=== PATIENT | female | born 1965 | race Caucasian/White ===

== ENCOUNTER → 2017-11-06 16:57 | Outpatient (CLI) | payer BC, SELFPAY ==
[2017-11-06 18:27] LABS: Thyroid Stim Hormone (TSH) 1.74 uIU/mL (0.358-3.74)
[2017-11-09 13:02] LABS: HPV Reflexed? NOT INDICATED
== END ==
PROVIDERS: Visit Provider Obstetrics & Gynecology
DX: Z12.4 Encounter for screening for malignant neoplasm of cervix (principal); R63.5 Abnormal weight gain
CPT/HCPCS: 36415; 84443; 88175; G0145

== ENCOUNTER 2018-08-27 13:46 | Emergency (ER) | payer BC, SELFPAY ==
[2018-08-27 13:48] VITALS: BP 143/85; PULSE 86; RESP 16; TEMP 37.1; O2SAT 95; BMI 35.4
--- NOTE | 2018-08-27 13:59 | RAD_ITS ---
STUDY: X-RAY - RIGHT FOOT CLINICAL: Female, 53 years old. TECHNIQUE: 3 views view(s) of the foot. COMPARISON: None. FINDINGS: There is no evidence of osseous or articular abnormality. No soft tissue swelling identified. RAD/Foot min 3 Views IMPRESSION: Normal x-ray examination of the foot. Electronically Signed: Donald Black, at 14:45 EST Tel , Service support ,
--- NOTE | 2018-08-27 14:00 | RAD_ITS ---
STUDY: X-RAY - RIGHT ANKLE REASON FOR EXAM: Female, 53 years old. TECHNIQUE: 3 views view(s) of the ankle. COMPARISON: None. FINDINGS: There is no evidence of osseous or articular abnormality seen. The ankle mortise is unremarkable. There is minimal soft tissue swelling adjacent to the lateral malleolus. RAD/Ankle min 3 Views IMPRESSION: Negative study for fracture or dislocation Electronically Signed: Donald Black, at 14:46 EST Tel , Service support ,
--- NOTE | 2018-08-27 14:57 | ED.DCSUM_ITS ---
- ER Visit Summary Date of Service: 08/27/18 Chief Complaint: [Injury right ankle and foot] History of Present Illness: The patient is a 53 F [presents to the emergency department with an injury to her right foot and ankle that occurred last evening. Patient states that she missed a step and rolled her foot and ankle. Patient having a hard time bearing any weight. She did have some crutches at home. She denies any other injuries.] Physical Examination: [HEENT-PERRLA, EOMI. Cranial nerves II through XII grossly intact. TMs clear. Mucous membranes moist. No adenopathy. Cardiovascular-regular rate and rhythm without murmur or ectopy Lungs-clear to auscultation, chest wall stable without crepitus or subcu emphysema Abdomen-normoactive bowel sounds, soft, nontender, no rebound or rigidity, no peritoneal signs. Extremities-intact ?4, normal range of motion, normal pulses. Right ankle- patient has soft tissue swelling and ecchymosis diffusely about the ankle. Patient is tender over the tibiotalar joint. He has some diffuse tenderness over the proximal foot. Patient has soft tissue swelling and ecchymosis diffusely about the foot as well. She has no pain at the proximal fibular head. She is neurovascular intact.] Test Results: [X-rays of the right foot and ankle were obtained which were negative for fracture] Emergency Department Course and Treatment: [Patient was given an Aircast and 1 dose of [place]] Treatment Plan: [Patient advised ice and elevate elevate the extremity. 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 It may contain incorrect words, spelling, and punctuation that were not noted in review of the chart prior to signing ED Disposition - Plan for ED Patient: Chief Complaint: Lower Extremity Injury Referrals: Sofia Ortiz MD [Primary Care Provider] -
--- NOTE | 2018-08-27 14:58 | ED.DEP ---
ED Disposition - Plan for ED Patient: Chief Complaint: Lower Extremity Injury Instructions: ED Sprain Ankle W X Ray, ED Sprain Foot Prescriptions: Hydrocodone Bitart/Apap 5-325 [Imperial 5MG-325MG] 1 tab PO Q4H PRN PRN 2 Days #10 tab PRN Reason: Pain Referrals: Sofia Ortiz MD [Primary Care Provider] - Rudy Ott DO [STAFF PHYSICIAN] - 5-7 Days
[2018-08-27] MEDS: HYDROcodone Bitartrate/Apap 5/325 Tablet PO (15:10)
[2018-08-27 15:11] VITALS: RESP 18
== END 2018-08-27 15:11 | disposition home or self-care (01) ==
PROVIDERS: Emergency Provider Emergency Medicine; Family Provider Family Medicine; PCP Family Medicine
DX: S93.401A Sprain of unspecified ligament of right ankle, initial encounter (principal); S93.601A Unspecified sprain of right foot, initial encounter; W10.9XXA Fall (on) (from) unspecified stairs and steps, initial encounter; Y93.9 Activity, unspecified; Y92.9 Unspecified place or not applicable; Y99.9 Unspecified external cause status; Z72.0 Tobacco use; Z79.899 Other long term (current) drug therapy
CPT/HCPCS: 73610; 73630; 99283

== ENCOUNTER → 2019-02-06 15:51 | Outpatient (CLI) | payer BC, SELFPAY ==
--- NOTE | 2019-02-06 15:56 | RAD_ITS ---
STUDY: X-RAY CHEST REASON FOR EXAM: Female, 53 years old. Shortest breath, cough, chronic but worsening dyspnea. Long time smoking history. TECHNIQUE: PA and lateral views of the chest. COMPARISON: None. FINDINGS: There is borderline to mild hyperinflation of the lungs, suggesting obstructive lung disease. Small transverse linear density in the lingula of left upper lobe consistent with scar. No pneumonic infiltrate. There is no demonstrated pleural abnormality. Normal size heart. Normal mediastinum and humera. Normal visualized pulmonary arteries. Normal visualized aortic arch and descending thoracic aorta. There are minor multilevel degenerative changes of the mid thoracic spine. There is borderline to mild left lateral wedging of the T8 vertebra. The absence of apparent paraspinal swelling at that level suggests this is old. Normal visualized ribs, clavicles, and shoulders. There is no demonstrated abnormality of the visualized soft tissue structures of the upper abdomen. RAD/Chest PA and Lateral IMPRESSION: Borderline to mild hyperinflation, suggesting obstructive pulmonary disease. Focal linear scar in the lingula of left upper lobe. Electronically Signed: Star Oro MD at 13:21 EDT , Service support ,
== END ==
PROVIDERS: Family Provider Family Medicine; PCP Family Medicine; Referring Provider Family Medicine; Visit Provider Family Medicine
DX: J44.1 Chronic obstructive pulmonary disease with (acute) exacerbation (principal)
CPT/HCPCS: 71046

== ENCOUNTER → 2019-04-11 15:49 | Outpatient (CLI) | payer BC, SELFPAY ==
--- NOTE | 2019-04-11 15:53 | BI_ITS ---
MAMMOGRAPHY - BILATERAL SCREENING REASON FOR EXAM: Female, 54 years old. Routine annual screening examination. PERTINENT HISTORY: Non-contributory. TECHNIQUE: Digital bilateral breast tonya (3D mammographic acquisition) in the CC and MLO projections. 2-D mediolateral oblique (MLO) and craniocaudad (CC) views of both breasts were obtained. CAD: Full Field Digital Mammography with Computer Added Detection was performed. COMPARISON: Comparison is made with prior examination dated August 26, 2015. FINDINGS: Breast Composition: The breasts are heterogeneously dense, which may obscure small masses. There are no dominant masses or suspicious calcifications. No other significant abnormalities are identified. There has been no significant change since the prior study. BI/SCREEN MAMM (CAD) W/TONYA BILAT IMPRESSION: Stable bilateral screening mammogram. Yearly follow-up mammogram recommended. (A) ASSESSMENT CATEGORY: BIRADS Category 1: Negative. A letter regarding these results will be sent to the patient by the facility within 30 days. Approximately 10% of breast cancers are not detected by mammography. A normal mammogram should not delay biopsy of a clinically suspicious abnormality. [id number] Electronically Signed: Jc Guadarrama, at 9:10 EDT , Service support ,
== END ==
PROVIDERS: Family Provider Family Medicine; PCP Family Medicine; Referring Provider Family Medicine; Visit Provider Family Medicine
DX: Z12.31 Encounter for screening mammogram for malignant neoplasm of breast (principal)
CPT/HCPCS: 77063; 77067

== ENCOUNTER → 2019-07-15 13:12 | Outpatient (CLI) | payer BC, SELFPAY ==
--- NOTE | 2019-07-15 15:11 | PFTCOMP ---
COMPLETE PULMONARY FUNCTION TEST INTERPRETATION Brief HPI: Patient is a 54 year old female, currently under the care of Dr. Ortiz, who presents to [facility] for complete pulmonary function tests secondary to diagnosis of asthma versus COPD. Respiratory therapist reports good effort and reproducible results. Interpretation: Forced expiration spirometry shows a mild large airways obstructive ventilatory defect with an FEV1 of 77% predicted. There is a significant bronchodilator response in FVC and FEV1 by strict ATS criteria. Spirograms are of good quality and plateau slowly, indicating slowly emptying areas of the lungs. The respiratory flow volume loop shows decreased expiratory flow rates at all lung volumes consistent with airway obstruction. Lung volumes by body plethysmography show an elevated total lung capacity at 5.62 L, 118% predicted. FRC and RV are elevated out of proportion. Lung volume measurements are consistent with hyperinflation and air-trapping. Diffusion capacity by carbon monoxide is at the lower limit of normal at 76% predicted. The airway resistance is elevated. No previous pulmonary function tests were available for review. Impression: Partially reversible mild large airways obstructive ventilatory defect resulting in air trapping with hyperinflation, and a pattern consistent with COPD/asthma overlap syndrome.
== END ==
PROVIDERS: Family Provider Family Medicine; PCP Family Medicine; Referring Provider Family Medicine; Visit Provider Family Medicine
DX: J45.909 Unspecified asthma, uncomplicated (principal)
CPT/HCPCS: 94060; 94726; 94729

== ENCOUNTER → 2019-08-14 12:54 | Outpatient (CLI) | payer BC, SELFPAY ==
[2019-08-14 12:44] VITALS: BMI 34.5
--- NOTE | 2019-08-14 13:00 | RAD_ITS ---
STUDY: X-RAY - RIGHT KNEE REASON FOR EXAM: Chronic pain, no specific injury. TECHNIQUE: 4 view(s) of the knee. COMPARISON: None. FINDINGS: Normal visualized distal femur. Normal visualized proximal tibia and fibula. Normal proximal tibiofibular articulation. There is moderate to severe joint space narrowing of the medial femorotibial compartment. Normal lateral femorotibial compartment. There are minimal marginal osteophytes without joint space narrowing of the patellofemoral articulation. The soft tissue structures are unremarkable. RAD/Knee 4 or More Views IMPRESSION: Arthrosis of the medial femorotibial compartment. Electronically Signed: Andrew Hook MD at 14:30 EST Tel , Service support ,
== END ==
PROVIDERS: Family Provider Family Medicine; PCP Family Medicine; Referring Provider Orthopaedic Surgery; Visit Provider Orthopaedic Surgery
DX: M17.11 Unilateral primary osteoarthritis, right knee (principal)
CPT/HCPCS: 73564

== ENCOUNTER → 2020-03-29 14:10 | Outpatient (CLI) | payer BC, SELFPAY ==
[2019-08-14 12:44] VITALS: BMI 34.5
[2020-03-29 16:58] LABS: Absolute Lymphocyte Count 1.67 X10^3/uL (0.83-4.51); Absolute Neutrophil Count 3.4 X10^3/uL (2.0-7.7); Basophil# 0.01 X10^3/uL; Basophil% 0.2 % (0-1); Eosinophil# 0.05 X10^3/uL; Eosinophils% 0.9 % (0-5); Hematocrit 42.7 % (37-47); Hemoglobin 14.1 g/dL (12.0-15.0); Lymphocyte # 1.67 X10^3/ul (4.0); Lymphocyte % 29.5 % (19-41); Mean Corpuscular Hgb 32.3 pg (27.0-32.0); Mean Corpuscular Volume 97.9 fL (81-99); Mean Platelet Vol. 8.8 fl (6.2-12.0); Monocyte# 0.49 X10^3/uL; Monocyte% 8.7 % (0-10); NRBC Flagged by Analyzer 0 % (0-5); Neutrophil # 3.42 X10^3/uL (2.7-7.7); Neutrophil % 60.3 % (47-70); Platelet Count 236 K/mm3 (150-450); RBC Distribution Width CV 11.9 % (11.6-14.6); RBC Distribution Width SD 43.8 fl (35.1-43.9); Red Blood Count 4.36 M/mm3 (4.2-5.4); White Blood Count 5.7 K/mm3 (4.4-11.0)
[2020-03-29 17:16] LABS: ALB/GLOB Ratio 1.1 RATIO (0.9-2.4); AST(SGOT) 21 U/L (15-37); Alanine Aminotransfer ALT/SGPT 25 U/L (13-56); Albumin, Serum 3.9 g/dL (3.2-5.0); Alkaline Phosphatase 68 U/L (45-117); Anion Gap 3 (5-15); BUN 11 mg/dL (7-18); Calcium,Total 9.1 mg/dL (8.5-10.1); Chloride 104 mmol/L (98-107); Creatinine, Serum 0.84 mg/dL (0.55-1.02); EST Glomerular Filtration Rate 75 mL/min (>60); Est Glom Filt Rate - Afr Amer 90 mL/min (>60); Globulin 3.4 g/dL (2.2-4.2); Glucose 88 mg/dL (74-106); Lipase 60 U/L (73-393); Potassium 3.7 mmol/L (3.5-5.1); Protein, Total 7.3 g/dL (6.4-8.2); Sodium Level 137 mmol/L (136-145)
[2020-03-31 13:16] LABS: H.Pylori Breath Test Positive (Negative)
== END ==
PROVIDERS: PCP Family Medicine; Visit Provider Family Medicine
DX: R10.13 Epigastric pain (principal)
CPT/HCPCS: 36415; 80053; 83013; 83690; 85025

== ENCOUNTER → 2020-05-24 15:51 | Outpatient (CLI) | payer BC, SELFPAY ==
[2019-08-14 12:44] VITALS: BMI 34.5
[2020-05-26 15:19] LABS: H.Pylori Breath Test Negative (Negative)
== END ==
PROVIDERS: PCP Family Medicine; Visit Provider Family Medicine
DX: A04.8 Other specified bacterial intestinal infections (principal)
CPT/HCPCS: 83013

== ENCOUNTER → 2020-12-24 08:49 | Outpatient (CLI) | payer OTHER, SELFPAY ==
[2019-08-14 12:44] VITALS: BMI 34.5
--- NOTE | 2020-12-24 08:53 | RAD_ITS ---
STUDY: X-RAY - ESOPHAGUS (BARIUM SWALLOW) WITH FLUOROSCOPY REASON FOR EXAM: Female, 55 years old. DYSPHAGIA TECHNIQUE: 15 view(s) of the esophagus were obtained following swallowing of barium. FLUOROSCOPY TIME (if supplied): (23 seconds) minutes/seconds COMPARISON: None. FINDINGS: There is no demonstrated esophageal foreign body. There is no demonstrated stricture or mucosal abnormality. Normal gastroesophageal junction, without a demonstrated hiatal hernia. The patient ingested a 12 mm tablet of barium without any difficulty. Normal visualized aortic arch and descending thoracic aorta. Normal visualized pulmonary parenchyma. Normal visualized osseous structures of the thorax. RAD/Esophagus Dual Contrast IMPRESSION: Normal plain film x-ray examination (barium swallow) of the esophagus. Electronically Signed: Jc Guadarrama MD at 12:35 EDT , Service support ,
== END ==
PROVIDERS: PCP Family Medicine; Referring Provider Otolaryngology; Visit Provider Otolaryngology
DX: R13.10 Dysphagia, unspecified (principal)
CPT/HCPCS: 74221

== ENCOUNTER 2020-12-27 11:46 | Emergency (ER) | payer OTHER, SELFPAY ==
[2019-08-14 12:44] VITALS: BMI 34.5
[2020-12-27 11:47] VITALS: BP 177/92; PULSE 103; RESP 18; TEMP 35.9; O2SAT 97; BMI 36.9
--- NOTE | 2020-12-27 13:08 | EKG12_ITS ---
Test Reason : REPEAT-CP Blood Pressure : / mmHG Vent. Rate : 076 BPM Atrial Rate : 076 BPM P-R Int : 148 ms QRS Dur : 090 ms QT Int : 400 ms P-R-T Axes : 057 082 043 degrees QTc Int : 450 ms Normal sinus rhythm Normal ECG Confirmed by CRISTI LAU, LARA ([id number]), acquisitions editor GABRIEL POSADAS ([id number]) on 12/30/2020 8:56:21 AM Referred By: MEGHNA Confirmed By:LARA COLIN MD
--- NOTE | 2020-12-27 13:15 | RAD_ITS ---
STUDY: X-RAY CHEST REASON FOR EXAM: Female, 55 years old. Chest pain TECHNIQUE: Single AP portable view of the chest. COMPARISON: Comparison is made with prior examination dated 02/06/2019. FINDINGS: EKG electrodes are seen. Hyperinflation. Stable minimal increased linear markings in the left mid lung suggestive of a scarring. There is no demonstrated pleural abnormality. Normal size heart. Normal mediastinum and humera. Normal visualized pulmonary arteries. Normal visualized aortic arch and descending thoracic aorta. Normal visualized thoracic spine. Normal visualized ribs, clavicles, and shoulders. There is no demonstrated abnormality of the visualized soft tissue structures of the upper abdomen. RAD/Chest 1 View (Portable) IMPRESSION: Hyperinflation. Stable examination. Electronically Signed: Jc Guadarrama MD at 13:45 EDT , Service support ,
[2020-12-27 13:18] LABS: Absolute Neutrophil Count 3.4 X10^3/uL (2.0-7.7); Basophil# 0.03 X10^3/uL; Basophil% 0.4 % (0-1); Eosinophil# 0.07 X10^3/uL; Hematocrit 43.5 % (37-47); Hemoglobin 14.6 g/dL (12.0-15.0); Lymphocyte % 39.9 % (19-41); Mean Corp Hgb Conc 33.6 g/dL (32-36); Mean Corpuscular Hgb 33.3 pg (27.0-32.0); Mean Corpuscular Volume 99.1 fL (81-99); Mean Platelet Vol. 8.1 fl (6.2-12.0); Monocyte# 0.52 X10^3/uL; Monocyte% 7.7 % (0-10); NRBC Flagged by Analyzer 0 % (0-5); Neutrophil # 3.43 X10^3/uL (2.7-7.7); Neutrophil % 50.7 % (47-70); Platelet Count 218 K/mm3 (150-450); RBC Distribution Width CV 12.6 % (11.6-14.6); RBC Distribution Width SD 46.6 fl (35.1-43.9); Red Blood Count 4.39 M/mm3 (4.2-5.4); White Blood Count 6.8 K/mm3 (4.4-11.0)
[2020-12-27 13:29] LABS: D-Dimer Quantitative (DVT/PE) 0.32 FEU/ug/m (0.27-0.49)
[2020-12-27 13:33] VITALS: BP 149/79; PULSE 89; RESP 25; O2SAT 96
[2020-12-27 13:33] LABS: Anion Gap 5 (5-15); BUN 14 mg/dL (7-18); BUN/Creat Ratio 15.9 RATIO (10-20); Calcium,Total 9.5 mg/dL (8.5-10.1); Chloride 101 mmol/L (98-107); Creatinine, Serum 0.88 mg/dL (0.55-1.02); EST Glomerular Filtration Rate 71 mL/min (>60); Est Glom Filt Rate - Afr Amer 86 mL/min (>60); Estimated Creatinine Clearance 63.11 ml/min; Glucose 104 mg/dL (74-106); Potassium 3.9 mmol/L (3.5-5.1); Sodium Level 138 mmol/L (136-145)
[2020-12-27 13:37] VITALS: O2SAT 96
[2020-12-27] MEDS: Aspirin 81 MG TAB.CHEW 324 MG PO (13:40)
--- NOTE | 2020-12-27 13:55 | ED.DCSUM_ITS ---
History of Present Illness Chief Complaint: Chest Pain Informant: Patient Narrative: 55-year-old female presenting with chest pain. She states it is sharp and left parasternal. Its been constant since about 10-10 30 this morning. She has a little bit of shortness of breath but she always does with her asthma. She notes no significant change. Patient had no diaphoresis, nausea, lightheadedness. She is concerned because her brother had a stent at 45. She has not had any cardiac history and never had a stress test. She states her mother also of a heart attack at 59. She denies fever, chills. She does have acid reflux. He also takes medications for anxiety depression. She does not have diabetes, hypertension, hyperlipidemia. Past Medical History - Allergies and Home Meds Allergies/Adverse Reactions: Allergies No Known Allergies Allergy (Verified 12/27/20 11:47) Primary Care Physician: Sofia Ortiz MD [Primary Care Provider] - Past Medical History: - - Anxiety/depression, GERD Lives: Spouse/ Significant Other Smoking Status: Current every day smoker Alcohol: None Drugs: None Review of Systems General: Denies: Chills, Fever, Sweats Eyes: Denies: Visual changes - bilaterally, Diplopia ENT: Denies: Rhinorrhea, Sore throat Cardiovascular: Reports: Chest pain. Denies: Palpitations, Heart racing Respiratory: Reports: Dyspnea. Denies: Cough, Sputum, Dyspnea on exertion Gastrointestinal: Denies: Abdominal pain, Nausea, Vomiting, Diarrhea, Melena, Hematochezia Genitourinary: Denies: Dysuria, Hematuria, Frequency Musculoskeletal: Denies: Back pain, Extremity Pain Skin: Denies: Rash, Wounds Neurological: Denies: Headache, Weakness, Numbness Psych: Denies: Depression, Anxiety, Suicidal thoughts, Suicidal ideations, -, - Physical Exam Vital Signs/Narrative: Vital Signs Temp Pulse Resp BP Pulse Ox 12/27/20 13:37 96 12/27/20 13:33 89 25 H 149/79 H 96 12/27/20 11:47 96.6 F L 103 H 18 177/92 H 97 General: Obese, No Acute Distress Head: Normocephalic, Atraumatic Eyes: Perrl, EOMI, Pale conjunctiva ENT: Moist mucous membranes, No rhinorrhea Cardiovascular: Regular rate, Regular rhythm Respiratory: No distress, CTA bilaterally Abdomen: Soft, Nontender, Nondistended Back: Nontender, Normal Inspection Extremities: Nontender, No edema Skin: Normal color, No rash. Negative for: Cyanosis, Diaphoresis Neurological: Alert, Oriented x3, Cranial nerves II-XII grossly intact Psychological: Normal affect, Normal Mood Diagnostic/Tx/Re-eval - Medical Decision Making 55-year-old female presenting with chest pain which started about 10-10 30 this morning. She describes it as sharp and parasternal. She does have some shortness of breath however she states she is always short of breath with asthma. EKG performed on arrival shows a sinus rhythm at 100 bpm without signs of ischemic change as interpreted by myself. Chest x-ray interpreted by myself shows no acute cardiopulmonary process. CBC, BMP, troponin unremarkable. D- dimer is negative. Patient's heart score is a 3 based on strong family history, age, smoking, and obesity. Patient will have delta troponin and EKG. EKG is sinus rhythm at 76 bpm without signs of ischemic change as interpreted by myself. Delta troponin is negative. Patient will be discharged home. Counseled to follow-up with her PCP for more outpatient follow-up. Patient st able at this time. Impression: 1. Chest pain ED Disposition - Plan for ED Patient: Disposition: Home or Assisted Living Instructions: ED Chest Pain, Uncertain Cause Referrals: Sofia Ortiz MD [Primary Care Provider] -
[2020-12-27 15:15] VITALS: BP 162/68; PULSE 80; RESP 19; O2SAT 94
--- NOTE | 2020-12-27 16:00 | EKG12_ITS ---
Test Reason : CP Blood Pressure : / mmHG Vent. Rate : 100 BPM Atrial Rate : 100 BPM P-R Int : 136 ms QRS Dur : 088 ms QT Int : 350 ms P-R-T Axes : 079 086 046 degrees QTc Int : 451 ms Normal sinus rhythm Normal ECG Confirmed by CRISTI LAU, LARA ([id number]), photographic editor GABRIEL POSADAS ([id number]) on 12/30/2020 8:56:37 AM Referred By: DAMIEN/MEGHNA Confirmed By:LARA COLIN MD
[2020-12-27 17:25] VITALS: BP 158/93; PULSE 76; RESP 15; O2SAT 94
[2020-12-27 17:57] VITALS: BP 155/87; PULSE 73; RESP 17; O2SAT 98
== END 2020-12-27 17:58 | disposition home or self-care (01) ==
PROVIDERS: Emergency Provider Student in an Organized Health Care Education/Training Program; PCP Family Medicine
DX: R07.9 Chest pain, unspecified (principal); J45.909 Unspecified asthma, uncomplicated; K21.9 Gastro-esophageal reflux disease without esophagitis; F32.9 Major depressive disorder, single episode, unspecified; F41.9 Anxiety disorder, unspecified; F17.200 Nicotine dependence, unspecified, uncomplicated; Z79.899 Other long term (current) drug therapy; Z82.49 Family history of ischemic heart disease and other diseases of the circulatory system
CPT/HCPCS: 71045; 80048; 84484; 85025; 85379; 93005; 99284; A4216

== ENCOUNTER → 2021-02-09 12:21 | Outpatient (CLI) | payer OTHER, SELFPAY ==
[2019-08-14 12:44] VITALS: BMI 34.5
--- NOTE | 2021-02-09 14:34 | NEURO ---
NCS and/or EMG Patient Report Ordering Doctor: Sofia Ortiz DATE OF SERVICE: 02/09/21 Beatriz presents for electrodiagnostic testing of the lower limbs. She reports numbness and tingling in both legs with shooting pains bilaterally. Electrodiagnostic findings: Peroneal motor nerve demonstrates normal distal latency, amplitude and conduction velocity bilaterally. Normal tibial motor response bilaterally. Normal peroneal and tibial F waves. H reflex is are borderline prolonged. Sensory responses are within normal limits. On needle EMG, all muscles tested in the lower limbs show no evidence of denervation with normal motor unit action potentials. Electrodiagnostic assessment: This is a normal electrodiagnostic study in the lower limbs. There is no electrodiagnostic evidence for peripheral neuropathy or lumbosacral radiculopathy.
== END ==
PROVIDERS: PCP Family Medicine; Referring Provider Family Medicine; Visit Provider Family Medicine
DX: G62.9 Polyneuropathy, unspecified (principal)
CPT/HCPCS: 95886; 95912

== ENCOUNTER 2021-09-12 17:29 | Emergency (ER) | payer BC, SELFPAY ==
[2021-09-12 17:29] VITALS: BP 167/129; PULSE 108; RESP 18; TEMP 36; O2SAT 96; BMI 38.2
[2021-09-12 18:57] VITALS: BP 163/99
--- NOTE | 2021-09-12 19:30 | EX.ED.DYSGE1 ---
HPI History of Present Illness Chief Complaint: Hypertension Informant: patient Onset/Context/Timing Onset: Today Timing: Intermittent Narrative Narrative: 56-year-old female history of depression and anxiety. Has had URI symptoms for about a week. Today was tested at the [facility] and tested positive for COVID-19. States has had a cough URI symptoms. Denies vomiting or trouble breathing. She is never been told she had hypertension has never been treated for it. Prior similar symptoms: No Recent Illness/Hospitalization: No PFSH PFSH Home Medications bupropion HCl 300 mg 24 hr tablet, extended release 450 mg PO DAILY 30 Days #30 01/10/18 [History Last Taken Unknown] paroxetine HCl 40 mg tablet 40 mg PO DAILY 30 Days #30 01/10/18 [History Last Taken Unknown] fluticasone propionate 110 mcg/actuation HFA aerosol inhaler 1 puff INHALATION DAILY #12 g 08/14/19 [History Last Taken Unknown] Allergy/AdvReac Type Severity Reaction Status Date / Time No Known Allergies Allergy Verified 09/12/21 17:31 Social History Smoking Status: Current every day smoker tobacco type: cigarettes alcohol intake: never ROS ROS ED ROS Narrative Cough and URI symptoms. Review of Systems ROS Unobtainable: Denies due to encephalopathy Constitutional Constitutional ED: Denies daytime sleepiness Eyes Eyes: Denies blindness or change in vision ENT ENT ED: Denies bleeding gums or dizziness Cardiovascular Cardiovascular: Denies abdominal pain Respiratory/Chest Respiratory/Chest: Denies change in mental status Gastrointestinal Gastrointestinal: Denies constipation Genitourinary Genitourinary ED: Denies anuria or burning urination Integumentary Denies alopecia Neurologic Neurologic: Denies abnormal movements or abnormal speech Psychiatric Psychiatric: Denies cognitive impairment or confusion Endocrine Endocrinology: Denies cold intolerance Hematologic/Lymphatic Hematologic/Lymphatic: Denies anemia Allergic/Immunologic Allergic/Immunologic ED: Denies itchy eyes, lip swelling or mouth swelling EXAM Physical Exam Narrative Exam Narrative: Patient no acute distress vital signs stable afebrile. Her blood pressure on room was 160/90. Pulse ox 96% on room air no signs hypoxia. She is in no distress. HEENT exam unremarkable. Neck nontender. Lungs clear to auscultation bilaterally. Heart regular rhythm no murmur. Abdomen soft nontender. Moving all 4 extremities. Calves nontender without edema or cords. Neurologic exam normal. Const Vital Signs: 09/12/21 17:29 09/12/21 18:56 09/12/21 18:57 Temperature 96.8 F L Temperature Source Temporal Pulse Rate 108 H Respiratory Rate 18 Respiratory Effort Normal Non-Labored Respiratory Pattern Normal Blood Pressure 167/129 H 163/99 H Blood Pressure Mean 141 120 Pulse Ox 96 Oxygen Delivery Method Room Air Positive well nourished, well developed, obese, alert, oriented x3, no apparent distress, average body habitus, no limitations and healthy appearing; Negative for cachectic, contractures or unkempt General Appearance ED: active, cooperative and well developed; Negative for unkempt, cachectic or contractures Nutritional Appearance: obese; Negative for cachectic HEENT Reports normocephalic, head/scalp atraumatic and moist oral mucous membranes Eyes PERRL, EOMs intact bilaterally, conjunctivae normal and no scleral icterus Neck full ROM, No nuchal rigidity, no lymphadenopathy, supple, no meningeal signs and no JVD Lymph Lymphatic: no lymphadenopathy noted and no lymphedema noted; Negative for lymphedema or lymphadenopathy Chest Wall inspection of chest normal and palpation of chest normal Resp normal respiratory effort, normal air movement, no retractions, no use of accessory muscles, clear to auscultation bilaterally and percussion normal GI normal to inspection, nondistended, normoactive bowel sounds, soft to palpation, non-tender, non-distended, no masses and no bruits Back/Spine no CVA tenderness, normal ROM and normal to inspection Extremity normal to inspection, full ROM, normal capillary refill, no clubbing, cyanosis or edema, no calf tenderness and no pedal edema Neuro oriented x3, moves all extremities, no focal motor deficits and no sensory deficits noted Psych mental status grossly normal, thought process normal, cooperative, affect normal, speech normal and activity/motor behavior normal Appearance: Negative for unkempt Skin no rashes or lesions noted, no wounds, no jaundice, no petechiae and no mottling Rashes: no rashes MDM MDM MDM Narrative Medical decision making narrative: Middle-aged female COVID-positive today. Has a history of depression anxiety. She is never treated for hypertension her pressures been elevated today. She discussed she did not want start on blood pressure medications she will log her pressures twice a day follow-up with her primary care physician and they will decide at that time if she needs to be on blood pressure medication. She also be referred for monoclonal antibody therapy due to her being COVID-positive from the outpatient lab today. Discharge Plan Triage Chief Complaint: Hypertension ED Provider: Maurizio Keith Dx/Rx/DC Orders Clinical Impression: COVID-19, Elevated blood pressure reading Instructions: ED Hypertension, To Be Confirmed, Human Coronaviruses Prescriptions: No Action paroxetine HCl 40 mg tablet 40 mg PO DAILY 30 Days Qty: 30 RF: 0 bupropion HCl 300 mg tablet extended release 24 hr 450 mg PO DAILY 30 Days Qty: 30 RF: 0 fluticasone propionate 110 mcg/actuation HFA aerosol inhaler 1 puff INHALATION DAILY Qty: 12 RF: 0 Other Ambulatory Orders: COVID Outpatient Monoclonal Antibody Referral (Routine) Timeframe: 1 Day Facility: [facility] - Location: [facility] Ordered By: Dr. Maurizio Keith Primary Care Provider: Sofia Ortiz Referrals: Sofia Ortiz MD [Primary Care Provider] - 3-5 Days Activity Restrictions/Additional Instructions: For your COVID plenty of fluids and rest. Tylenol or Motrin for fever. And body aches. Hospital call you and then can decide if you want to be a candidate for the monoclonal antibodies. Return if you are feeling worse. If positive I will get a blood pressure machine or heart or someone's and log your blood pressure twice daily. Showed those readings to your doctor when you follow-up with her. That will help her determine if she needs start you on blood pressure medication. Disposition Disposition: Home, Self Care
[2021-09-12 19:40] VITALS: BP 160/90
[2021-09-12 20:08] VITALS: BP 159/74; PULSE 89; RESP 15; O2SAT 99
== END 2021-09-12 20:08 | disposition home or self-care (01) ==
PROVIDERS: Emergency Provider Emergency Medicine; PCP Family Medicine; Visit Provider Emergency Medicine
DX: U07.1 COVID-19 (principal); R03.0 Elevated blood-pressure reading, without diagnosis of hypertension; F32.A Depression, unspecified; F41.9 Anxiety disorder, unspecified; E66.9 Obesity, unspecified; Z68.38 Body mass index [BMI] 38.0-38.9, adult; Z79.899 Other long term (current) drug therapy
CPT/HCPCS: 99282

== ENCOUNTER → 2022-04-07 | Outpatient (CLI) | payer BC, SELFPAY ==
--- NOTE | 2022-04-07 13:51 | STRESSREP ---
Stress Test Report Date: 04-07-2022 Procedure: Exercise tolerance test Indications: Chest pain; status post COVID-19 Consent: Per the patient Procedure: The patient exercised on a Catalino protocol for 6 minutes completing stage II achieving a peak heart rate of 151 bpm (91% predicted maximal heart rate) with a peak blood pressure 210/70 mmHg and a peak MET capacity of approximately 7 MET's. The baseline ECG demonstrated normal sinus rhythm. The peak exercise ECG demonstrated somatic/motion artifact with no obvious ECG changes. There were no cardiac dysrhythmias pretest, during exercise, or recovery. The functional capacity was considered average. The patient had no complaint of chest discomfort during exercise or recovery. The examination was discontinued secondary to dyspnea. Impression: 1. Technically adequate (percent predicted maximal heart rate greater than 85%) exercise tolerance test 2. Peak exercise ECG with with somatic/motion artifact with no obvious ECG changes 3. There were no cardiac dysrhythmias during exercise or recovery This note was generated with [employer] software. It may contain incorrect words, spelling, and punctuation that were not noted in checking the note before signing.
== END | disposition home or self-care (01) ==
LOC: CVS 12:16
PROVIDERS: PCP Family Medicine; Referring Provider Family Medicine; Visit Provider Family Medicine
DX: R07.9 Chest pain, unspecified (principal); R06.00 Dyspnea, unspecified
CPT/HCPCS: 93017

== ENCOUNTER → 2022-11-03 | Outpatient (CLI) | payer BC, SELFPAY ==
[2022-11-03 17:41] LABS: ALB/GLOB Ratio 1.3 RATIO (0.9-2.4); AST(SGOT) 21 U/L (15-37); Alanine Aminotransfer ALT/SGPT 21 U/L (13-56); Alkaline Phosphatase 76 U/L (45-117); Anion Gap 7 (5-15); BUN 20 mg/dL (7-18); BUN/Creat Ratio 21.5 RATIO (10-20); Calcium,Total 9.7 mg/dL (8.5-10.1); Chloride 97 mmol/L (98-107); Cholesterol 236 mg/dL (200); Creatinine, Serum 0.93 mg/dL (0.55-1.02); EST Glomerular Filtration Rate 66 mL/min (>60); Est Glom Filt Rate - Afr Amer 80 mL/min (>60); Globulin 3.1 g/dL (2.2-4.2); Glucose 107 mg/dL (74-106); High Density Lipoprotein 93 mg/dL; Potassium 4.3 mmol/L (3.5-5.1); Protein, Total 7.1 g/dL (6.4-8.2); Sodium Level 136 mmol/L (136-145); Triglycerides 44 mg/dL; Very Low Density Lipoprotein 9 mg/dL (5-40)
[2022-11-03 17:42] LABS: Absolute Neutrophil Count 2.3 X10^3/uL (2.0-7.7); Basophil# 0.02 X10^3/uL; Basophil% 0.4 % (0-1); Eosinophil# 0.06 X10^3/uL; Eosinophils% 1.1 % (0-5); Hematocrit 41.3 % (37-47); Hemoglobin 13.9 g/dL (12.0-15.0); Lymphocyte % 48.8 % (19-41); Mean Corp Hgb Conc 33.7 g/dL (32-36); Mean Corpuscular Hgb 32.5 pg (27.0-32.0); Mean Corpuscular Volume 96.5 fL (81-99); Mean Platelet Vol. 8.6 fl (6.2-12.0); Monocyte# 0.43 X10^3/uL; Monocyte% 7.8 % (0-10); NRBC Flagged by Analyzer 0 % (0-5); Neutrophil # 2.32 X10^3/uL (2.7-7.7); Neutrophil % 41.9 % (47-70); Platelet Count 236 K/mm3 (150-450); RBC Distribution Width SD 43.1 fl (35.1-43.9); Red Blood Count 4.28 M/mm3 (4.2-5.4); White Blood Count 5.5 K/mm3 (4.4-11.0)
[2022-11-03 18:06] LABS: Vitamin D,25 Hydroxy 15.4 ng/mL
== END | disposition home or self-care (01) ==
LOC: BFHLAB 15:56
PROVIDERS: PCP Family Medicine; Visit Provider Family Medicine
DX: R06.00 Dyspnea, unspecified (principal); J44.9 Chronic obstructive pulmonary disease, unspecified; K21.9 Gastro-esophageal reflux disease without esophagitis
CPT/HCPCS: 36415; 80053; 80061; 82306; 85025

== ENCOUNTER → 2023-01-09 | Outpatient (CLI) | payer BC, SELFPAY ==
--- NOTE | 2023-01-09 16:06 | BI_ITS ---
MAMMOGRAPHY - BILATERAL SCREENING REASON FOR EXAM: Female, 57 years old. Routine annual screening examination. PERTINENT HISTORY: Non-contributory. TECHNIQUE: Digital bilateral breast tonya (3D mammographic acquisition) in the CC and MLO projections. 2-D mediolateral oblique (MLO) and craniocaudad (CC) views of both breasts were obtained. CAD: Full Field Digital Mammography with Computer Added Detection was performed. COMPARISON: Comparison is made with prior study dated April 11, 2019 and August 26, 2015. FINDINGS: Breast Composition: The breasts are heterogeneously dense, which may obscure small masses. There are no dominant masses or suspicious calcifications. No other significant abnormalities are identified. There has been no significant change since the prior study. BI/SCRN MAMM (CAD)W/TONYA BILAT IMPRESSION: Stable bilateral screening mammogram. Yearly follow-up mammogram recommended. (A) ASSESSMENT CATEGORY: BIRADS Category 1: Negative. A letter regarding these results will be sent to the patient by the facility within 30 days. Approximately 10% of breast cancers are not detected by mammography. A normal mammogram should not delay biopsy of a clinically suspicious abnormality. [id number] Electronically Signed: Jc Guadarrama MD at 9:09 EDT ,
== END | disposition home or self-care (01) ==
PROVIDERS: PCP Family Medicine; Referring Provider Family Medicine; Visit Provider Family Medicine
DX: Z12.31 Encounter for screening mammogram for malignant neoplasm of breast (principal)
CPT/HCPCS: 77063; 77067

== ENCOUNTER → 2023-12-18 | Outpatient (CLI) | payer BC, SELFPAY ==
[2023-12-18 12:20] LABS: Absolute Lymphocyte Count 1.43 X10^3/uL (0.83-4.51); Basophil# 0.03 X10^3/uL; Basophil% 0.5 % (0-1); Eosinophil# 0.05 X10^3/uL; Eosinophils% 0.8 % (0-5); Hematocrit 41.6 % (37-47); Hemoglobin 13.6 g/dL (12.0-15.0); Lymphocyte # 1.43 X10^3/ul (0.83-4.51); Lymphocyte % 23.5 % (19-41); Mean Corp Hgb Conc 32.7 g/dL (32-36); Mean Corpuscular Hgb 33.2 pg (27.0-32.0); Mean Corpuscular Volume 101.5 fL (81-99); Mean Platelet Vol. 8.5 fl (6.2-12.0); Monocyte# 0.55 X10^3/uL; NRBC Flagged by Analyzer 0 % (0-5); Neutrophil # 4.01 X10^3/uL (2.7-7.7); Neutrophil % 65.9 % (47-70); Platelet Count 244 K/mm3 (150-450); RBC Distribution Width CV 12.8 % (11.6-14.6); RBC Distribution Width SD 48.1 fl (35.1-43.9); White Blood Count 6.1 K/mm3 (4.4-11.0)
[2023-12-18 12:55] LABS: Vitamin D,25 Hydroxy 29.1 ng/mL
[2023-12-18 13:21] LABS: ALB/GLOB Ratio 1.1 RATIO (0.9-2.4); AST(SGOT) 30 U/L (15-37); Alanine Aminotransfer ALT/SGPT 33 U/L (13-56); Albumin, Serum 3.6 g/dL (3.2-5.0); Alkaline Phosphatase 74 U/L (45-117); Anion Gap 5 (5-15); BUN 18 mg/dL (7-18); BUN/Creat Ratio 21.9 RATIO (10-20); Calcium,Total 8.9 mg/dL (8.5-10.1); Chloride 105 mmol/L (98-107); Cholesterol 220 mg/dL (200); Creatinine, Serum 0.82 mg/dL (0.55-1.02); EST Glomerular Filtration Rate 76 mL/min (>60); Est Glom Filt Rate - Afr Amer 92 mL/min (>60); Globulin 3.2 g/dL (2.2-4.2); Glucose 120 mg/dL (74-106); High Density Lipoprotein 91 mg/dL; Potassium 4.2 mmol/L (3.5-5.1); Protein, Total 6.8 g/dL (6.4-8.2); Sodium Level 139 mmol/L (136-145); Thyroid Stim Hormone (TSH) 1.91 uIU/mL (0.358-3.74); Triglycerides 63 mg/dL; Very Low Density Lipoprotein 13 mg/dL (5-40)
[2023-12-18 14:19] LABS: Hemoglobin A1c 5.6 % (3.8-5.6)
== END | disposition home or self-care (01) ==
LOC: BFHLAB 09:46
PROVIDERS: PCP Family Medicine; Referring Provider Family Medicine; Visit Provider Family Medicine
DX: I10 Essential (primary) hypertension (principal); J44.9 Chronic obstructive pulmonary disease, unspecified; K21.9 Gastro-esophageal reflux disease without esophagitis; E55.9 Vitamin D deficiency, unspecified; R06.00 Dyspnea, unspecified
CPT/HCPCS: 36415; 80053; 80061; 82306; 83036; 84443; 85025

== ENCOUNTER → 2024-01-08 | Outpatient (CLI) | payer BC, SELFPAY ==
--- NOTE | 2024-01-08 14:09 | CT_ITS ---
EXAM: CT CHEST, LUNG CANCER SCREENING WITHOUT INTRAVENOUS CONTRAST CLINICAL INDICATION: Lung cancer screening -- and gt;20 pk yr hx;current smoker; asymptomatic TECHNIQUE: Helically acquired images were obtained of the chest without intravenous contrast using low dose (LDCT) lung cancer screening protocol. This CT exam was performed using one or more of the following dose reduction techniques: automated exposure control, adjustment of the mA and/or kV according to patient size, and/or use of iterative reconstruction technique. COMPARISON: No relevant prior studies available. FINDINGS: LUNGS AND PLEURAL SPACES: Normal. No pleural effusion or thickening. No pneumothorax. No evidence of a lung mass or suspicious pulmonary nodule. HEART: Normal. No pericardial effusion. Normal heart size. No coronary artery calcification. MEDIASTINUM: Normal. No mediastinal or hilar adenopathy. Esophagus is unremarkable. No hiatal hernia. THYROID: Normal. No thyroid nodules or calcification. BONES/JOINTS: Partial fusion of the posterior portion of the right sixth and seventh ribs. VASCULATURE: No aortic aneurysm. LYMPH NODES: Normal. No enlarged lymph nodes. CT/Low Dose CT Lung Screening IMPRESSION: No evidence of a lung mass or suspicious pulmonary nodule. Lung-RADS score: 1 - Negative. Recommend continued annual screening with a low-dose CT (LDCT) in 12 months. Electronically Signed: Luis Felipe Aviles MD at 14:40 EDT ,
== END | disposition home or self-care (01) ==
PROVIDERS: PCP Family Medicine; Referring Provider Nurse Practitioner Family; Visit Provider Nurse Practitioner Family
DX: Z12.2 Encounter for screening for malignant neoplasm of respiratory organs (principal); Z87.891 Personal history of nicotine dependence
CPT/HCPCS: 71271

== ENCOUNTER → 2024-02-05 | Outpatient (CLI) | payer BC, SELFPAY ==
--- NOTE | 2024-02-05 15:45 | BI_ITS ---
MAMMOGRAPHY - BILATERAL SCREENING REASON FOR EXAM: Female, 58 years old. Routine annual screening examination. PERTINENT HISTORY: Non-contributory. TECHNIQUE: Digital bilateral breast tonya (3D mammographic acquisition) in the CC and MLO projections. 2-D mediolateral oblique (MLO) and craniocaudad (CC) views of both breasts were obtained. CAD: Full Field Digital Mammography with Computer Added Detection was performed. COMPARISON: Comparison is made with prior study dated January 09, 2023 and April 11, 2019. FINDINGS: Breast Composition: The breasts are heterogeneously dense, which may obscure small masses. There are no dominant masses or suspicious calcifications. No other significant abnormalities are identified. There has been no significant change since the prior study. BI/SCRN MAMM (CAD)W/TONYA BILAT IMPRESSION: Stable bilateral screening mammogram. Yearly follow-up mammogram recommended. (A) ASSESSMENT CATEGORY: BIRADS Category 1: Negative. A letter regarding these results will be sent to the patient by the facility within 30 days. Approximately 10% of breast cancers are not detected by mammography. A normal mammogram should not delay biopsy of a clinically suspicious abnormality. [id number] Electronically Signed: Jc Guadarrama MD at 8:33 EDT ,
== END | disposition home or self-care (01) ==
LOC: OPBI 15:43
PROVIDERS: PCP Family Medicine; Referring Provider Family Medicine; Visit Provider Family Medicine
DX: Z12.31 Encounter for screening mammogram for malignant neoplasm of breast (principal)
CPT/HCPCS: 77063; 77067

== ENCOUNTER → 2025-08-01 | Outpatient (CLI) | payer BC, SELFPAY ==
--- OUTSIDE RECORDS SUMMARY | 2025-08-01 08:52 | XMS RPT_ITS | CCD ---
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 Sofia Unger Primary Care Provider [phone] Dr. Sofia Ortiz Referring Provider [phone] MD Mika Pollard Attending Provider [phone] Dr. Scotty Portlilo Attending Provider Dr. Sofia Ortiz Other Provider [phone] Alfredo Banerjee Attending Provider [phone] Sofia Ortiz MD Primary Care Provider Guevara [employer], Sandra Attending Unavailable Sofia Ortiz Primary Care Unavailable Sofia Ortiz Referring Unavailable Sofia Ortiz Attending Unavailable Sofia Ortiz Primary Care Unavailable Medications Current Medications Medication Drug Class(es) Dates Sig (Normalized) Sig (Original) [id number] 200 actuat albuterol 0.09 mg/actuat metered dose inhaler (5 sources) beta2-Adrenergic Agonist Start: 03-31-2022 Albuterol Sulfate Active G INHALATION March 31, 2022 12:00am Start: 06-18-2017 take 2 puff(s) by mo [facility] every six hours as needed for wheezing VENTOLIN HFA 90 mcg/actuation inhaler INHALE TWO PUFFS BY MOUTH EVERY 6 HOURS NEEDED FOR WHEEZING AND FOR SHORTNESS OF BREATH 1 Inhaler 2 06/18/2017 Active Start: 09-26-2016 take 2 puff(s) by in halation four times daily as needed albuterol HFA (PROAIR HFA) 90 mcg/actuation inhaler Indications: Mild intermittent asthma without complication , GASTELUM (dyspnea on exertion) Inhale 2 Puffs as instructed four times daily as needed. 1 Inhaler 5 09/26/2016 Active 24 hr buPROPion hydrochloride 300 mg extended release oral tablet (4 sources) Aminoketone Start: 01-10-2018 take 450 mg by mouth once daily Bupropion Hcl Active 450 MG PO DAILY January 10, 2018 12:00am Start: 12-24-2017 buPROPion XL ( WELLBUTRIN XL) 300 mg 24 hr tablet 12/24/2017 Active doxycycline monohydrate 100 mg oral capsule (4 sources) Tetracycline-class Drug Start: 01-10-2018 End: 01-24-2018 doxycycline monohydrate (MONODOX) 100 mg capsule 01/10/2018 Active 120 actuat fluticasone propionate 0.11 mg/actuat metered dose inhaler (3 sources) Corticosteroid Start: 08-14-2019 take 1 puff(s) by inhalation once daily Fluticasone Propionate Active 1 PUFF INHALATION DAILY August 14, 2019 1:00am naltrexone hydrochloride 50 mg oral tablet (3 sources) Opioid Antagonist Start: 03-31-2022 Naltrexone Active EACH PO March 31, 2022 12:00am PARoxetine hydrochloride 40 mg oral tablet (6 sources) Serotonin Reuptake Inhibitor Start: 01-10-2018 take 40 mg by mouth once daily Paroxetine Hcl Active 40 MG PO DAILY January 10, 2018 12:00am Start: 04-09-2017 PAROXETINE HCL TABS as directed PAROXETINE HCL TABS [id number] Sujey Olivas LPN Start: 12-29-2016 take 1 tablet by [place] twice daily PARoxetine (PAXIL) 40 mg tablet Take 1 tablet by mouth twice daily. 60 tablet 5 12/29/2016 Active Completed/Discontinued Medications Medication Drug Class(es) Dates Sig (Normalized) Sig (Original) acetaminophen 325 mg / HYDROcodone bitartrate 5 mg oral tablet (3 sources) Opioid Agonist Start: 08-27-2018 End: 08-29-2018 take 1 tablet by mouth every four hours as needed Hydrocodone-Aceta minophen Discontinued 1 TABLET PO EVERY 4 HOURS NEEDED 06 04August 27, 2018 1:00am August 29, 2018 1:08am amoxicillin 875 mg / clavulanate 125 mg oral tablet (3 sources) Penicillin-class Antibacterial Start: 11-15-2021 End: 11-25-2021 take 1 tablet by mouth every twelve hours Amoxicillin-Pot Clavulanate Discontinued 1 TABLET PO Q12H 22 06November 15, 2021 12:00am November 25, 2021 12:03am 24 hr loratadine 10 mg / pseudoephedrine sulfate 240 mg extended release oral tablet (2 sources) alpha-Adrenergic Agonist Start: 04-09-2017 CLARITIN-D 24 HOUR [id number] as directed LORATADINE-PSEUDO EPHEDRINE [id number] Sujey Olivsa LPN Start: 04-09-2017 CLARITIN-D 24 HOUR [id number] as directed LORATADINE-PSEUDOEPHEDRINE [id number] Sujey Olivas LPN methylPREDNISolone 4 mg oral tablet (5 sources) Corticosteroid Start: 11-15-2021 End: 11-20-2021 take 1 tablet by mouth once Methylprednisolone (Medrol (Zeeshan)) 4 mg tablets,dose pack Discontinued 4 MG PO per package directions 21 01November 15, 2021 12:00am November 20, 2021 12:03am Start: 04-09-2017 End: 04-14-2017 MEDROL 4 MG TBPK Take as dir ected METHYLPREDNISOLONE [id number] Garry KNIGHT Start: 04-09-2017 End: 04-14-2017 MEDROL 4 MG TBPK Take as dir ected METHYLPREDNISOLONE [id number] Garry KNIGHT Problems Active Problems Problem Classification Problem Date Documented Date Episodic/Chronic Anxiety disorders (1 source) Mixed anxiety and depressive disorder; Translations: [Other specified anxiety disorders] Onset: 01-23-2007 10-22-2015 Chronic Asthma (1 source) Asthma; Translations: [Unspecified asthma, uncomplicated] 09-26-2016 Chronic Osteoarthritis (4 sources) Osteoarthritis of right knee joint; Translations: [Unilateral primary osteoarthritis, right knee] Chronic Other circulatory disease (3 sources) Elevated blood pressure; Translations: [Elevated blood-pressure reading, without diagnosis of hypertension] 09-20-2021 Episodic Other non-traumatic joint disorders (3 sources) Knee joint inflamed; Translations: [Monoarthritis, not elsewhere classified, right knee] 03-31-2022 Chronic Other non-traumatic joint disorders (4 sources) Pain in right knee; Translations: [Right knee pain] Episodic Other upper respiratory infections (5 sources) Upper respiratory infection; Translations: [Acute sinusitis] Onset: 04-09-2017 04-09-2017 Episodic Substance-related disorders (3 sources) Tobacco user; Translations: [Nicotine dependence, unspecified, uncomplicated] Onset: 09-01-2008 09-01-2008 Chronic Superficial injury; contusion (3 sources) Tick bite; Translations: [Insect bite (nonvenomous) of abdominal wall, initial encounter] 01-10-2018 Episodic Unclassified (1 source) Smoking cessation education ; Translations: [Tobacco abuse counseling] Onset: 04-09-2017 04-09-2017 Viral infection (3 sources) Disease caused by 2019-nCoV; Translations: [COVID-19] 09-12-2021 Episodic Past or Other Problems Problem Classification Problem Date Documented Da te Episodic/Chronic Other upper respiratory disease (2 sources) Pain in throat; Translations: [Acute pharyngitis, unspecified] Onset: 04-09-2017 04-09-2017 Episodic Results Test Name Value Interpretation Reference Range Facility Oncology Visit Reporton 01-02 Oncology Visit Report [facility] [address] [place] [id number] OFFICE VISIT Date of Service: 01/20/25 1623 MR#: [id number] Acct: [id number] Name: ARACELI SIEGEL Rep #: [id number] : 1965 From: Sandra Waterman NP [employer]PECTOR [employer] -C Age/Sex: 59/F Location: [facility] Status: Signed Unable Date 01/20/25 Patient: ARACELI SIEGEL : [address] Ortiz, Ms. Siegel has declined lung cancer screening in 2024. As you know, early detection is mcnamara, especially with patients who are or have been heavy smokers. Because low-dose chest CT scans can significantly increase chances of survival in lung cancer patients when the cancer is caught early through screening, we will be happy to include her in the screening program if she verbalizes interest to you in the future. Please contact the lung cancer screening program at [facility] at with any further questions or concerns. Sincerely, Sandra Waterman, EDUARDO-EXHIBIT TECHNICIAN, AOCNP 01/20/25 1624 Date Sandra Waterman INSPECTOR DIALS [employer] Cosigner Signature: Date (if applicable) CC: [facility] Tele[facility] ([facility]) -------- ARACELI SIEGEL ([id number]) 1965 F Date Time Provider Department 09/01/24 NO PCP [facility]AMPWS During your visit today, we recorded the following information about you: Emmie Ortiz RN 09/01/2024 8:58 AM Signed Patient calls to establish care with Dr. Gonzalez. Notified office not accepting new patients. Patient reports that her is a patient and requests this be sent to Dr. Gonzalez for review. Patient requests call back at [phone]. JAMIA Escamilla Mark D, MD 09/16/2024 5:10 PM Signed I would be OK to see her, as long as she is aware that I will likely retire in the next year or two MD Papa Campbell Barbara, LPN 09/17/2024 9:55 AM Signed TC to pt. LM to call office, ask for triage nurse to schedule establish with . ELEAZAR Khanna Kathryn, MA 09/19/2024 11:23 AM Signed Please call pt to set up establish care appt with Dr. Gonzalez. RHONDA Guerrero Ida 09/19/2024 1:28 PM Signed First attempt to contact patient. LVM to return call Christy Waterman 09/22/2024 3:03 PM Signed Patient is scheduled 10-18-2024 to est care Allergies As of Date: 09/01/2024 (No Known Allergies) Date Reviewed: 01/14/2018 Reviewed by: Rima Salvador Cma - Fully Assessed Reason for Visit: Appointment [186] Prescriptions as of 09/22/2024 - doxycycline monohydrate (MONODOX) 100 mg capsule - buPROPion XL (WELLBUTRIN XL) 300 mg 24 hr tablet - VENTOLIN HFA 90 mcg/actuation inhaler INHALE TWO PUFFS BY MOUTH EVERY 6 HOURS NEEDED FOR WHEEZING AND FOR SHORTNESS OF BREATH - PARoxetine (PAXIL) 40 mg tablet Take 1 tablet by mouth twice daily. - albuterol HFA (PROAIR HFA) 90 mcg/actuation inhaler Inhale 2 Puffs as instructed four times daily as needed. Problem List As Of Date 09/01/2024 Noted Resolved Depression with anxiety [F41.8] 01/23/2007 Asthma [J45.909] TOBACCO USE DISORDER [F17.200] 09/01/2008 Encounter Status:Closed by CHRISTY WATERMAN on 09/22/24 Normal [facility] Absolute lymphocyte countOrd ered By: Sofia Ortiz on 12-18-2023 Lymphocytes Auto (Unsp spec) [#/Vol] 1.43 10*3/uL 0.83-4.51 [facility] Automated lymphocyte count a s percentage of total leukocytesOrdered By: Sofia Ortiz on 12-18-2023 Lymphocytes/100 WBC Auto (Unsp spec) 23.5 % 19-41 [facility] Basophil percentageOrdered B y: Sofia Ortiz on 12-18-2023 Basophils/100 WBC (Bld) 0.5 % 0-1 [facility] Bilirubin [Mass/Vol] 0.60 mg/dL 0.20-1.00 [facility] Comment on above: For patients on eltr ombopag therapy, use of Dimension [place] TBIL is not recommended. Chloride [Moles/Vol] 105 mmol/L 98-107 [facility] Cholesterol [Mass/Vol] 220 mg/dL <200 [facility] Comment on above: <200 mg/dL Desirable 200-240 mg/dL Borderline >240 mg/dL High Risk Eosinophils/100 WBC (Bld) 0.8 % 0-5 [facility] Glucose [Mass/Vol] 120 mg/dL 74-106 [facility] Comment on above: Fasting Glucose resu lt from 100 to 125 mg/dL suggests IMPAIRED HOMEOSTASIS per A.D.A. criteria. Hemoglobin (Bld) [Mass/Vol] 13.6 g/dL 12.0-15.0 [facility] Monocytes/100 WBC (Bld) 9.0 % 0-10 [facility] Neutrophils (Bld) [#/Vol] 4.0 10*3/uL 2.0-7.7 [facility] Neutrophils/100 WBC (Bld) 65.9 % 47-70 [facility] Potassium [Moles/Vol] 4.2 mmol/L 3.5-5.1 [facility] Protein [Mass/Vol] 6.8 g/dL 6.4-8.2 [facility] Sodium [Moles/Vol] 139 mmol/L 136-145 [facility] Triglyceride [Mass/Vol] 63 mg/dL <199 [facility] Comment on above: The drugs N-Acetylcy steine and Metamizole may falsely depress this assay.Serum Triglycerides Reference Interval Normal <150 mg/dL Borderline high 150 - 199 mg/dL High 200 - 499 mg/dL Very High > or = 500 mg/dL WBC (Bld) [#/Vol] 6.1 10*3/uL 4.4-11.0 [facility] Determination of erythrocyte mean corpuscular volume (MCV)Ordered By: Sofia Ortiz on 12-18-2023 MCV (RBC) [Entitic vol] 101.5 fL 81-99 [facility] Erythrocyte distribution wid th ratioOrdered By: Sofia Diana on 12-18-2023 Erythrocyte distribution width (RBC) [Ratio] 12.8 % 11.6-14.6 [facility] Erythrocyte distribution wid th standard deviationOrdered By: Sofia Diana on 12-18-2023 Erythrocyte distribution width (RBC) [Entitic vol] 48.1 fL 35.1-43.9 [facility] Hematocrit Auto (Bld) [Volum e fraction]Ordered By: Sofia Ortiz on 12-18-2023 Hematocrit (Bld) [Volume fraction] 41.6 % 37-47 [facility] Immature granulocytes/100 WB C Auto (Bld)Ordered By: Sofia Kitty on 12-18-2023 Immature granulocytes/100 WBC (Bld) 0.300 % 0.0-0.9 [facility] Comment on above: IG% - Immature Granu locytes (promyelocytes, myelocytes and metamyelocytes) > 1% indicates that a LEFT SHIFT is Present. Laboratory - Chemistry and C hemistry - challengeOrdered By: Sofia Ortiz on 12-18-2023 Albumin/Globulin [Mass ratio] 1.1 {ratio} 0.9-2.4 [facility] ALP [Catalytic activity/Vol] 74 U/L 45-117 [facility] ALT [Catalytic activity/Vol] 33 U/L 13-56 [facility] Cholesterol in HDL [Mass/Vol] 91 mg/dL >40 [facility] Comment on above: The drugs N-Acetylcy steine and Metamizole may falsely depress this assay. Reference Range HDL <40 mg/dL Low HDL Cholesterol HDL >or= 60 mg/dL High HDL Cholesterol Cholesterol in LDL [Mass/Vol] 116 mg/dL 0-130 [facility] CO2 [Moles/Vol] 29.0 mmol/L 21.0-32.0 [facility] Globulin (S) [Mass/Vol] 3.2 g/dL 2.2-4.2 [facility] Urea nitrogen/Creatinine [Mass ratio] 21.9 mg/mg 10-20 [facility] Laboratory - Hematology and Cell countsOrdered By: Sofiamanohar Ortiz on 12-18-2023 MCH (RBC) [Entitic mass] 33.2 pg 27.0-32.0 [facility] MCHC (RBC) [Mass/Vol] 32.7 g/dL 32-36 [facility] Nucleated RBC/100 WBC (Bld) [Ratio] 0 % 0-5 [facility] Platelet mean volume (Bld) [Entitic vol] 8.5 fL 6.2-12.0 [facility] Platelets (Bld) [#/Vol] 244 10*3/uL 150-450 [facility] No Panel InformationOrdered By: Sofia Ortiz on 12-18-2023 Estimated GFR (MDRD) Amer 92 mL/min >60 [facility] Comment on above: GFR Calc Estimated GFR (MDRD) Non-Af Amer 76 mL/min >60 [facility] Comment on above: Non- GFR Calc Vitamin D 25-Hydroxy 29.1 ng/mL [facility] Comment on above: Vitamin D 25(OH) Sta tus Range Deficiency <20 ng/mL (50nmol/L) Insufficiency 20 - 30 ng/mL (50 - 75 nmol/L) Sufficiency 30 - 100 ng/mL (75 - 250 nmol/L) Toxicity >100 ng/mL (>250 nmol/L) VLDL Cholesterol 13 mg/dL 5-40 [facility] RBC Auto (Bld) [#/Vol]Ordere d By: Sofia Ortiz on 12-18-2023 RBC (Bld) [#/Vol] 4.10 10*6/uL 4.2-5.4 [facility] Serum or plasma calcium yunior urement (mass/volume)Ordered By: Sofia Ortiz on 12-18-2023 Calcium [Mass/Vol] 8.9 mg/dL 8.5-10.1 [facility] Serum or plasma creatinine m easurement (mass/volume)Ordered By: Sofia Ortiz on 12-18-2023 Creatinine [Mass/Vol] 0.82 mg/dL 0.55-1.02 [facility] Comment on above: The validity of the calculated GFR & GFRAA in patients over 70 years has not been determined. Clinical correlation is essential. Serum or plasma thyroid stim ulating hormone (TSH) measurement (units/volume)Ordered By: Sofia Ortiz on 12-18-2023 TSH Qn 1.91 uIU/mL 0.358-3.74 [facility] Serum or plasma urea nitroge n measurement (mass/volume)Ordered By: Sofia Ortiz on 12-18-2023 Urea nitrogen [Mass/Vol] 18 mg/dL 7-18 [facility] Thin prep Papanicolaou smear with manual screeningOrdered By: Sofia Ortiz on 12-18-2023 Thin prep Papanicolaou smear with manual screening 3.6 g/dL 3.2-5.0 [facility] Thin prep Papanicolaou smear with manual screening 30 U/L 15-37 [facility] Thin prep Papanicolaou smear with manual screening 5 5-15 [facility] Whole blood hemoglobin A1c/t otal hemoglobin ratio (mass fraction)Ordered By: Sofia Ortiz on 12-18-2023 HbA1c (Bld) [Mass fraction] 5.6 % 3.8-5.6 [facility] Comment on above: Normal < 5.7 % Predi abetic 5.7 - 6.4 % Diabetic >or= 6.5 % Please note range changes. Absolute lymphocyte countOrd ered By: Dr. Ortiz on 11-03-2022 Lymphocytes Auto (Unsp spec) [#/Vol] 2.70 10*3/uL 0.83-4.51 [facility] Basophil percentageOrdered B y: Dr. Ortiz on 11-03-2022 Basophils/100 WBC (Bld) 0.4 % 0-1 [facility] Bilirubin [Mass/Vol] 0.80 mg/dL 0.20-1.00 [facility] Comment on above: For patients on eltr ombopag therapy, use of Dim[place] TBIL is not recommended. Chloride [Moles/Vol] 97 mmol/L 98-107 [facility] Cholesterol [Mass/Vol] 236 mg/dL <200 [facility] Comment on above: <200 mg/dL Desirable 200-240 mg/dL Borderline >240 mg/dL High Risk Eosinophils/100 WBC (Bld) 1.1 % 0-5 [facility] Glucose [Mass/Vol] 107 mg/dL 74-106 [facility] Comment on above: Fasting Glucose resu lt from 100 to 125 mg/dL suggests IMPAIRED HOMEOSTASIS per A.D.A. criteria. Neutrophils (Bld) [#/Vol] 2.3 10*3/uL 2.0-7.7 [facility] Neutrophils/100 WBC (Bld) 41.9 % 47-70 [facility] Potassium [Moles/Vol] 4.3 mmol/L 3.5-5.1 [facility] Protein [Mass/Vol] 7.1 g/dL 6.4-8.2 [facility] Sodium [Moles/Vol] 136 mmol/L 136-145 [facility] Triglyceride [Mass/Vol] 44 mg/dL <199 [facility] Comment on above: The drugs N-Acetylcy steine and Metamizole may falsely depress this assay.Serum Triglycerides Reference Interval Normal <150 mg/dL Borderline high 150 - 199 mg/dL High 200 - 499 mg/dL Very High > or = 500 mg/dL WBC (Bld) [#/Vol] 5.5 10*3/uL 4.4-11.0 [facility] Blood erythrocytes count (nu mber/volume)Ordered By: Dr. Ortiz on 11-03-2022 RBC (Bld) [#/Vol] 4.28 10*6/uL 4.2-5.4 [facility] Blood hemoglobin measurement (mass/volume)Ordered By: Dr. Ortiz on 11-03-2022 Hemoglobin (Bld) [Mass/Vol] 13.9 g/dL 12.0-15.0 [facility] Blood lymphocytes/100 leukoc ytesOrdered By: Dr. Ortiz on 11-03-2022 Lymphocytes/100 WBC (Bld) 48.8 % 19-41 [facility] Blood monocytes/100 leukocyt esOrdered By: Dr. Ortiz on 11-03-2022 Monocytes/100 WBC (Bld) 7.8 % 0-10 [facility] Blood platelet mean volumeOr dered By: Dr. Ortiz on 11-03-2022 Platelet mean volume (Bld) [Entitic vol] 8.6 fL 6.2-12.0 [facility] Determination of erythrocyte mean corpuscular volume (MCV)Ordered By: Dr. Ortiz on 11-03-2022 MCV (RBC) [Entitic vol] 96.5 fL 81-99 [facility] Hematocrit Auto (Bld) [Volum e fraction]Ordered By: Dr. Ortiz on 11-03-2022 Hematocrit (Bld) [Volume fraction] 41.3 % 37-47 [facility] Laboratory - Chemistry and C hemistry - challengeOrdered By: Dr. Ortiz on 11-03-2022 ALP [Catalytic activity/Vol] 76 U/L 45-117 [facility] ALT [Catalytic activity/Vol] 21 U/L 13-56 [facility] CO2 [Moles/Vol] 32.0 mmol/L 21.0-32.0 [facility] Globulin (S) [Mass/Vol] 3.1 g/dL 2.2-4.2 [facility] Urea nitrogen/Creatinine [Mass ratio] 21.5 mg/mg 10-20 [facility] Laboratory - Hematology and Cell countsOrdered By: Dr. Ortiz on 11-03-2022 Erythrocyte distribution width (RBC) [Entitic vol] 43.1 fL 35.1-43.9 [facility] Erythrocyte distribution width (RBC) [Ratio] 12.0 % 11.6-14.6 [facility] Immature granulocytes/100 WBC (Bld) 0.000 % 0.0-0.9 [facility] Comment on above: IG% - Immature Granu locytes (promyelocytes, myelocytes and metamyelocytes) > 1% indicates that a LEFT SHIFT is Present. MCH (RBC) [Entitic mass] 32.5 pg 27.0-32.0 [facility] Nucleated RBC/100 WBC (Bld) [Ratio] 0 % 0-5 [facility] MCHC Auto (RBC) [Mass/Vol]Or dered By: Dr. Ortiz on 11-03-2022 MCHC (RBC) [Mass/Vol] 33.7 g/dL 32-36 [facility] No Panel InformationOrdered By: Dr. Ortiz on 11-03-2022 Estimated GFR (MDRD) Amer 80 mL/min >60 [facility] Comment on above: GFR Calc Estimated GFR (MDRD) Non-Af Amer 66 mL/min >60 [facility] Comment on above: Non- GFR Calc Vitamin D 25-Hydroxy 15.4 ng/mL [facility] Comment on above: Vitamin D 25(OH) Sta tus Range Deficiency <20 ng/mL (50nmol/L) Insufficiency 20 - 30 ng/mL (50 - 75 nmol/L) Sufficiency 30 - 100 ng/mL (75 - 250 nmol/L) Toxicity >100 ng/mL (>250 nmol/L) Platelets bldOrdered By: Dr. Ortiz on 11-03-2022 Platelets (Bld) [#/Vol] 236 10*3/uL 150-450 [facility] Serum or plasma albumin yunior urement (mass/volume)Ordered By: Dr. Ortiz on 11-03-2022 Albumin [Mass/Vol] 4.0 g/dL 3.2-5.0 [facility] Serum or plasma albumin/glob ulin mass ratioOrdered By: Dr. Ortiz on 11-03-2022 Albumin/Globulin [Mass ratio] 1.3 {ratio} 0.9-2.4 [facility] Serum or plasma calcium yunior urement (mass/volume)Ordered By: Dr. Ortiz on 11-03-2022 Calcium [Mass/Vol] 9.7 mg/dL 8.5-10.1 [facility] Serum or plasma cholesterol in HDL measurement (mass/volume)Ordered By: Dr. Ortiz on 11-03-2022 Cholesterol in HDL [Mass/Vol] 93 mg/dL >40 [facility] Comment on above: The drugs N-Acetylcy steine and Metamizole may falsely depress this assay. Reference Range HDL <40 mg/dL Low HDL Cholesterol HDL >or= 60 mg/dL High HDL Cholesterol Serum or plasma cholesterol in VLDL measurement (mass/volume)Ordered By: Dr. Ortiz on 11-03-2022 Cholesterol in VLDL [Mass/Vol] 9 mg/dL 5-40 [facility] Serum or plasma creatinine m easurement (mass/volume)Ordered By: Dr. Ortiz on 11-03-2022 Creatinine [Mass/Vol] 0.93 mg/dL 0.55-1.02 [facility] Comment on above: The validity of the calculated GFR & GFRAA in patients over 70 years has not been determined. Clinical correlation is essential. Serum or plasma low density lipoprotein (LDL) cholesterol measurement (mass/volume)Ordered By: Dr. Ortiz on 11-03-2022 Cholesterol in LDL [Mass/Vol] 134 mg/dL 0-130 [facility] Serum or plasma urea nitroge n measurement (mass/volume)Ordered By: Dr. Ortiz on 11-03-2022 Urea nitrogen [Mass/Vol] 20 mg/dL 7-18 [facility] Thin prep Papanicolaou smear with manual screeningOrdered By: Dr. Ortiz on 11-03-2022 Thin prep Papanicolaou smear with manual screening 21 U/L 15-37 [facility] Thin prep Papanicolaou smear with manual screening 7 5-15 [facility] Office Visit: UC: headache, earache, sore throat, nausea, achyon 04-09-2017 Documentation of current medications (procedure) Done Invalid Interpretation Code [facility] Work Phone: Fall risk assessment No [facility] Work Phone: Protein mass conc yes [facility] Work Phone: Protein mass conc Done [facility] Work Phone: Smoking cessation education (procedure) yes Invalid Interpretation Code [facility] Work Phone: Tobacco smoking status NHIS Current every day smoker [facility] Work Phone: Tobacco use CPHS Current every day smoker Invalid Interpretation Code [facility] Work Phone: Vital Signs Date Time Vital Sign Value Performing Clinician Faci lity 03-31-2022 14:05-0400 Body height 160.[address] Sofia Ortiz Work Phone: [facility] Work Phone: 03-31-2022 14:05-0400 Body mass index (BMI) [Ratio] 37.9 kg/m2 Dr. Sofia Ortiz Work Phone: [facility] Work Phone: 03-31-2022 14:05-0400 Body weight 97.[address] Sofia Ortiz Work Phone: [facility] Work Phone: 04-09-2017 16:42-0400 BMI (Body Mass Index) 37.55 kg/m2 [facility] Work Phone: 04-09-2017 16:42-0400 Body Temperature 99 [degF] Sujey Olivas LPN [facility] Work Phone: 04-09-2017 16:42-0400 BP Diastolic 78 mm[Hg] Sujey Olivas LPN [facility] Work Phone: 04-09-2017 16:42-0400 BP Systolic 120 mm[Hg] Sujey Olivas LPN [facility] Work Phone: 04-09-2017 16:42-0400 Height 162.56 cm Sujey Olivas LPN [facility] Work Phone: 04-09-2017 16:42-0400 Pulse (Heart Rate) 102 /min Sujey Olivas LPN [facility] Work Phone: 04-09-2017 16:42-0400 Respiratory Rate 15 /min Sujey Olivas LPN [facility] Work Phone: 04-09-2017 16:42-0400 Weight 99.25 kg Sujey Olivas LPN [facility] Work Phone: Encounters Encounter Date Encounter Type Care Provider Facility Start: 08-01-2025 ambulatory Sofia Ortiz [facility]: [facility] [facility] Start: 01-20-2025 ambulatory Sandra Waterman INSPECTOR DIALS Facil ity:[facility] Start: 09-01-2024 End: 09-22-2024 Telephone encounter No Pcp CLIMATOLOGIST Family Medicine Laith leon Comment on above: Appointment Start: 12-18-2023 End: 12-18-2023 ambulatory [facility] Work Phone: Start: 12-18-2023 End: 12-18-2023 Patient encounter procedure [facility] Start: 11-03-2022 End: 11-03-2022 ambulatory [facility] Work Phone: Start: 11-03-2022 End: 11-03-2022 Patient encounter procedure [facility] D[facility] Start: 04-07-2022 Non-patient / Non-visit Dr. Evaristo Ortiz Work Phone: [facility] Start: 04-07-2022 End: 04-07-[address] Sofia Ortiz Work Phone: [facility] Start: 03-31-2022 End: 03-31-[address] Sofia Ortiz Work Phone: [facility] Orthopaedic Specia Procedures Date Procedure Procedure Detail Performing Clinician Start: 03-31-2022 Radiologic examinati on of knee Dr. Sofia Ortiz Work Phone: Start: 04-09-2017 Smoking cessation education Smoker/tobacco use disorder-smoking cessation discussed Sujey Olivas LPN Start: 08-11-2015 Lipid 1996 panel - S daryl or Plasma No Pcp CLIMATOLOGIST Plan of Treatment Date Care Activity Detail Author Start: 10-18-2024 End: 10-18-2024 Patient encounter procedure 10/18/2024 8:00 AM EST Office Visit Family [facility] [address], [place] [id number] Delano Gonzalez MD [address] [place] [address] est care ok per Faith [facility] Comment on above: est care ok per Faith Start: 05-04-2024 Covid-19 Vaccine () Covid-19 Vaccine () [facility] Start: 05-04-2024 Influenza vaccination Influenza Vacc ine (#1) [facility] Start: 12-05-2022 Urine microalbumin profile DTaP,Tdap,Td Vaccine (2 - Td or Tdap) [facility] Start: 08-11-2020 Lipid panel Lipid Screening [facility] Start: 08-24-2018 Screening for malign ant neoplasm of cervix Cervical Cancer Screening [facility] Start: 08-11-2018 Diabetes Screening Diabetes Screenin g [facility] Start: 04-09-2017 End: 04-09-2017 Appointment Appointment [facility] Work Phone: Start: 08-26-2016 Screening for malign ant neoplasm of breast Mammogram Screening [facility] Start: 2016 Pneumococcal Vaccine : 50+ (1 of 1 - PCV) Pneumococcal Vaccine: 50+ (1 of 1 - PCV) [facility] Start: 2016 Shingrix Vaccine (1 of 2) Shingrix Vaccine (1 of 2) [facility] Start: 2011 Screening for malign ant neoplasm of colon [facility] Start: 1985 Hepatitis B Vaccine (1 of 3 - 19+ 3-dose series) Hepatitis B Vaccine (1 of 3 - 19+ 3-dose series) [facility] Start: 1984 Anxiety Screening Anxiety Screening [facility] Start: 1984 Depression Screening Depression Scre ening [facility] Start: 1984 Hepatitis C screening Hepatitis C Sc reening [facility] Start: 1984 HIV screening HIV Screening [facility] Patient Education [facility] Now in Work Phone: Immunizations Immunization Date Immunization Notes Care Provider Anthony hardy 01-10-2018 tetanus toxoid, redu tylor diphtheria toxoid, and acellular pertussis vaccine, adsorbed Dr. 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 2006 [id number] Unknown [id number] Unknown [id number] Social History Date Type Detail Facility Start: 03-30-2022 End: 05-26-2022 Tobacco smoking status MIIS Unknown if ever smoked [facility] Start: 12-27-2020 None [facility] Start: 12-27-2020 Spouse/ Signif icant Other [facility] Start: 1965 Sex Assigned At Female [facility] Start: 01-14-2018 Tobacco smoking stat us MIIS Smokes tobacco daily [facility] History of tobacco use Cigarette Smoker [facility] Start: 01-14-2018 End: 08-10-2020 Cigarettes smoked current (pack per day) - Reported 1 [facility] Start: 01-14-2018 Tobacco use and exposure Smokeless tobacco non-user [facility] Start: 04-19-2022 Alcoholic beverage intake Current drinker of alcohol (finding) [facility] Start: 01-14-2018 End: 08-10-2020 Tobacco use panel [facility] National Score (1-10 0), lower number is lower risk Not on file [facility] Start: 1965 Sex assigned at Not on file [facility] Telephone encounter Note 09-22-2024 Telephone Encounter - Christy Waterman - 09/22/2024 3:02 PM EST Note Date & Type Note Facility 09-22-2024 Telephone encounter Note Patient is scheduled 10-18-2024 to est care [facility] Work Phone: Note 09-22-2024 Telephone Encounter - Christy Waterman - 09/22/2024 3:02 PM ESTTelephone Encounter - Christy Waterman - 09/19/2024 1:25 PM ESTTelephone Encounter - Nara Thornton MA - 09/19/2024 11:23 AM EST Note Date & Type Note Facility 09-22-2024 Miscellaneous Notes Formattin g of this note might be different from the original. Patient is scheduled 10-18-2024 to est care First attempt to contact patient. LVM to return call Please call pt to set up establish care appt with Dr. Gonzalez. Nara Thornton MA TC to pt. LM to call office, ask for triage nurse to schedule establish with . Rmia Elam LPN I would be OK to see her, as long as she is aware that I will likely retire in the next year or two Delano Gonzalez MD Patient calls to establish care with Dr. Gonzalez. Notified office not accepting new patients. Patient reports that her is a patient and requests this be sent to Dr. Gonzalez for review. Patient requests call back at [phone]. Emmie Ortiz RN documented in this encounter [facility] Telephone encounter Note 09-19-2024 Telephone Encounter - Christy Waterman - 09/19/2024 1:25 PM EST Note Date & Type Note Facility 09-19-2024 Telephone encount er Note First attempt to contact patient. LVM to return call [facility] Telephone encounter Note 09-19-2024 Telephone Encounter - Nara Thornton MA - 09/19/2024 11:23 AM EST Note Date & Type Note Facility 09-19-2024 Telephone encount er Note Please call pt to set up establish care appt with Dr. Gonzalez. Nara Thornton MA [facility] Telephone encounter Note 09-17-2024 Telephone Encounter - Rima Elam LPN - 09/17/2024 9:55 AM EST Note Date & Type Note Facility 09-17-2024 Telephone encount er Note TC to pt. LM to call office, ask for triage nurse to schedule establish with . Rima Elam LPN [facility] Telephone encounter Note 09-16-2024 Telephone Encounter - Delano Gonzalez MD - 09/16/2024 5:09 PM EST Note Date & Type Note Facility 09-16-2024 Telephone encounter Note I would be OK to see her, as long as she is aware that I will likely retire in the next year or two Delano Gonzalez MD [facility] Work Phone: Telephone encounter Note 09-01-2024 Telephone Encounter - Emmie Ortiz RN - 09/01/2024 8:56 AM EST Note Date & Type Note Facility 09-01-2024 Telephone encount er Note Patient calls to establish care with Dr. Gonzalez. Notified office not accepting new patients. Patient reports that her is a patient and requests this be sent to Dr. Gonzalez for review. Patient requests call back at [phone]. Emmie Ortiz RN [facility] Evaluation note Note Date & Type Note Facility Evaluation note Diagnosis Onset Date Osteoarthritis of right knee acute Right knee pain acute [facility] Work Phone: Evaluation note Note Date & Type Note Facility Evaluation note No assessment information availa ble [facility] Work Phone: Chief Complaint and Reason for Visit Chief Complaint RIGHT KNEE xray CHEST PAIN CHEST PAIN Reason for Visit Osteoarthritis of ri ght knee Right knee pain Advance Directives No Advanced Directives Records Found Advance Directive Response Recorded Date/ Time Living Will No March 29, 2022 12:26pm Power of Instrument Lens Generator No March 29 2 12:26pm Advance Directive Response Recorded Date/ Time Living Will No March 29, 2022 11:26am Power of Instrument Lens Generator No March 29 11:26am Summary Purpose Family History No Family History Records FoundNo Family History Records Found Additional Source Comments Goals (unrecognized section and content) Goals may be documented in a n alternate sectionGoals may be documented in an alternate sectionGoals may be documented in an alternate section Care Teams (unrecognized sec tion and content) Team Status: Active Member Role Status Dates Dr. Sofia Ortiz MD Family Provider Active Dr. Sofia Ortiz MD Primary Care Provider Active Team Status: Inactive Member Role Status Dates Dr. Sofia Ortiz MD Primary Care Provider, Attendin g Provider Active Team Status: Inactive Member Role Status Dates Dr. 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 Relationship Specialty Start Date End Date Sofia Ortiz MD [address] [facility] [place] [address] PCP - General Family Medicine 02/18/19 Source Comments (unrecognize d section and content) In the event this informatio n is protected by the Federal Confidentiality of Alcohol and Drug Abuse Patient Records regulations: The Federal rules restrict any use of the information to criminally investigate or prosecute any alcohol or drug abuse patient.[facility] Reason for Visit (unrecogniz ed section and content) Reason Comments Appointment INFORMATION SOURCE (unrecogn ized section and content) DATE CREATED AUTHOR 09/24/2024 [facility] DATE CREATED AUTHOR AUTHOR'S BILL FLORESION 07/16/2025 [facility] FOR RECORDS PERTAINING TO PATIENTS WHO ARE OR HAVE BEEN ENROLLED IN A CHEMICAL DEPENDENCY/SUBSTANCEABUSE PROGRAM, SOME INFORMATION MAY BE OMITTED. This clinical summary was aggregated from multiple sources. Caution should be exercised in using it in the provision of clinical care. This summary normalizes information from multiple sources, and as a consequence, information in this document may materially change the coding, format and clinical context of patient data. In addition, data may be omitted in some cases. CLINICAL DECISIONS SHOULD BE BASED ON THE PRIMARY CLINICAL RECORDS. [facility]. provides no warranty or guarantee of the accuracy or completeness of information in this document.
--- NOTE | 2025-08-01 08:54 | CT_ITS ---
PROCEDURE: LOW DOSE CT LUNG SCREENING 08/01/2025 REASON FOR EXAM: NICOTINE DEP TECHNIQUE: Procedure Code: [id number] Modality: CT Procedure: LOW DOSE CT LUNG SCREENING Coronal and Sagittal reconstruction series were provided. One or more dose reduction techniques were used (e.g., Automated exposure control, adjustment of the mA and/or kV according to patient size, use of iterative reconstruction technique). REFERENCE LINK: [facility] Lung-RADS COMPARISON: CT chest 01/08/2024 FINDINGS: PULMONARY NODULES: (Only nodules >3mm are reported) Pulmonary Nodules: None. Hardware:None. Lymph Nodes:No enlarged mediastinal, hilar, or axillary lymph nodes. Heart and Vasculature:Nonenlarged. No pericardial effusion. Coronary Artery Calcifications: Lungs and Airways: Lungs are clear. Airways are patent. Pleura:No pneumothorax or pleural effusion. Upper Abdomen:Visualized upper abdomen unremarkable. Bones:Degenerative changes of the thoracic spine. No acute fractures. CT/Low Dose CT Lung Screening IMPRESSION: No pulmonary nodules identified. Lung-RADS Category: 1 NEGATIVE. RECOMMEND 12-MONTH SCREENING LDCT. Reading [facility]
== END | disposition home or self-care (01) ==
LOC: CT 08:49
PROVIDERS: PCP Family Medicine; Referring Provider Family Medicine; Visit Provider Family Medicine
DX: Z12.2 Encounter for screening for malignant neoplasm of respiratory organs (principal); F17.200 Nicotine dependence, unspecified, uncomplicated
CPT/HCPCS: 71271